=== PATIENT | male | born 1990 | race Caucasian/White ===

== ENCOUNTER → 2022-07-19 08:02 | Outpatient (CLI) | payer OTHER, SELFPAY ==
--- NOTE | ~2022-07-19 | XR_ITS ---
XR lumbar spine min 4V DATE: 07/19/2022 08:21 INDICATION: Low back pain TECHNIQUE: AP, lateral, bilateral oblique views, coned lateral lumbosacral view COMPARISON: None FINDINGS: Normal alignment of the lumbar spine. No fracture or bone destruction. The lumbar pedicle s are intact. There is mild degenerative disc disease. No spondylolysis or spondylolisthesis. The sacroiliac joints are intact. IMPRESSION: Mild degenerative disc disease Reviewed, dictated and finalized at location B. [employer]
== END ==
PROVIDERS: PCP Chiropractor; Visit Provider Chiropractor
DX: M51.36 Other intervertebral disc degeneration, lumbar region (principal)
CPT/HCPCS: 72110